=== PATIENT | female | born 1975 | race African-American/Black ===

== ENCOUNTER 2017-08-20 18:01 | Emergency (ER) | payer BC | END 2017-08-20 19:38 | disposition home or self-care (01) | LOC: ERS 18:01 | DX: J45.901 Unspecified asthma with (acute) exacerbation (principal) | CPT/HCPCS: 94640; J7620 ==

== ENCOUNTER 2017-09-30 15:51 | Outpatient (CLI) | payer BC ==
[2017-09-30 18:21] LABS: #Basophils 0.1 thou/uL (0.0-0.2); #Eosinphils 0.3 thou/uL (0.0-0.7); #Lymphocytes 2.2 thou/uL (1.20-3.40); #Monocytes 0.7 thou/uL (0.11-0.59); #Neutrophils 7.9 thou/uL (1.40-6.50); %Basophils 0.6 % (0.0-1.0); %Eosinophils 3.1 % (0.0-10.0); %Lymphocytes 19.3 % (21.0-51.0); %Monocytes 6.1 % (0.0-10.0); Hematocrit 34.5 % (36.0-47.0); Mean Platelet Volume 9.1 fL (7.4-10.4); Red Blood Cell (RBC) Count 4.25 mill/uL (4.20-5.40); White Blood Cell (WBC) Count 11.1 thou/uL (4.8-10.8)
[2017-09-30 18:42] LABS: ALT (SGPT) 16 U/L (8-55); AST (SGOT) 21 U/L (5-34); Alkaline Phosphatase 63 U/L (40-150); Anion Gap 12 mmol/L (10-20); BUN (Urea Nitrogen) 9 mg/dL (7.0-18.7); Bilirubin, Total 0.6 mg/dL (0.2-1.2); Calc. Creatinine Clearance 0 mL/min (70-130); Calcium 9.5 mg/dL (7.8-10.44); Carbon Dioxide 27 mmol/L (22-29); Chloride 103 mmol/L (98-107); Estimated GFR-MDRD Greater than 90; Globulin 3.3 g/dL (2.4-3.5); Protein, Total 7.6 g/dL (6.0-8.3)
== END 2017-09-30 15:52 | disposition home or self-care (01) ==
LOC: LABBT 15:51
PROVIDERS: ATTEND Surgery
DX: Z01.812 Encounter for preprocedural laboratory examination (principal); N64.52 Nipple discharge
CPT/HCPCS: 80053; 85025

== ENCOUNTER 2017-10-10 23:52 | Emergency (ER) | payer BC ==
[2017-10-11] MEDS ORDERED: predniSONE 20 MG TAB ONE (00:42)
--- NOTE | 2017-10-11 07:42 | RAD ---
PORTABLE CHEST: HISTORY: Wheezing. Shortness of breath. [place] 01/25/17. FINDINGS: Lungs are clear. Heart and mediastinum unremarkable. IMPRESSION: No acute finding. POS: [facility]
== END 2017-10-11 03:26 | disposition home or self-care (01) ==
LOC: ERS 23:52
DX: J45.901 Unspecified asthma with (acute) exacerbation (principal)
CPT/HCPCS: 71010; 93005; 94640; J7506; J7620

== ENCOUNTER 2017-10-12 06:07 | Day surgery (SDC) | payer BC ==
[2017-09-30 16:29] VITALS: BMI 33.4
[2017-10-12] MEDS ORDERED: CEFAZOLIN/Water 2 GM/20 ML SYRINGE ONE (06:28)
[2017-10-12] MEDS ORDERED: Fentanyl 100 MCG/2 ML VIAL ONE (07:36)
[2017-10-12] MEDS ORDERED: Albuterol Sulfate HFA (OR ONLY) ONE (08:16)
--- NOTE | 2017-10-12 09:21 | OP ---
PREOPERATIVE DIAGNOSIS: Left bloody nipple discharge. SURGEON: Saravanan Ortiz M.D. PROCEDURE PERFORMED: Duct excision. INDICATIONS: This is a 42-year-old female with a several month history of bloody left nipple dischar ge. Mammogram negative. FINDINGS: There were multiple, at least three ducts that were having bloody discharge and it appeare d to be very close to the nipple by compression. DESCRIPTION OF PROCEDURE: After informed consent was obtained, the patient was taken to the operatin g room and given general mask anesthesia, placed in the supine position. Her left chest was prepped and draped in the usual fashion. The nipple was compressed to express discharge that appeared to be from a central duct. A 4-0 Prolene suture was attempted to be threaded through this tiny duct. I co uld not get it, but in trying, there were two other ducts that were also noted, but they were more la teral expressing the same discharge and I could not cannulate them, so what I did was injected local anesthesia subcutaneously and deep, made a circumareolar incision, went subareolar and sub-nipple and I took out tissue centrally from just below the nipple and down. This was marked with a blue suture superior, a white suture anterior, and a black suture lateral and sent to pathology for further anal ysis. Hemostasis was achieved with electrocautery and [id number] of 3-0 Vicryl suture. The wo und was irrigated. Hemostasis assured. Subcutaneous reapproximated with interrupted 3-0 Vicryl. Sk in closed with a running subcuticular 4-0 Rapide. Steri-Strips applied. Sterile bandage applied. T he patient tolerated the procedure well and transferred to recovery in good condition. Sponge and ne edle count verified correct x2.
[2017-10-12] MEDS ORDERED: HYDROcodone/Acetaminophen 5/325 mg Tablet ONE (09:43)
[2017-10-12] MEDS ORDERED: Propofol 200 MG/20 ML VIAL ONE (10:27)
[2017-10-12] MEDS ORDERED: Ondansetron HCl/PF 4 MG/2 ML Vial ONE (10:27)
[2017-10-12] MEDS ORDERED: Dexamethasone 20 MG/5 ML VIAL ONE (10:27)
[2017-10-12] MEDS ORDERED: Ketorolac Tromethamine 30 MG/ML VIAL ONE (10:27)
== END 2017-10-12 10:38 | disposition home or self-care (01) ==
LOC: SDC 06:07
PROVIDERS: ATTEND Surgery
PROC: 0HJU0ZZ Inspection of Left Breast, Open Approach (ICD-10-PCS; principal; 2017-10-12)
DX: D24.2 Benign neoplasm of left breast (principal); J45.909 Unspecified asthma, uncomplicated; Z79.899 Other long term (current) drug therapy; Z98.51 Tubal ligation status; Z98.818 Other dental procedure status; Z98.890 Other specified postprocedural states
CPT/HCPCS: 88307; J1100; J1885; J2405; J2704; J3010

== ENCOUNTER 2019-05-13 10:16 | Emergency (ER) | payer BC ==
[2019-05-13 11:22] LABS: #Basophils 0.1 thou/uL (0.0-0.2); #Eosinphils 0.2 thou/uL (0.0-0.7); #Lymphocytes 1.8 thou/uL (1.20-3.40); #Monocytes 0.7 thou/uL (0.11-0.59); #Neutrophils 4.9 thou/uL (1.40-6.50); %Eosinophils 2.9 % (0.0-10.0); %Lymphocytes 23.3 % (21.0-51.0); %Monocytes 9.3 % (0.0-10.0); %Neutrophils 63.5 % (42.0-75.0); Hemoglobin 10.2 g/dL (12.0-16.0); Mean Corpuscular HGB CONC 31.9 g/dL (32.0-36.0); Mean Corpuscular Hemoglobin 25.2 pg (27.0-31.0); Mean Platelet Volume 9.7 fL (7.4-10.4); Platelet Count 229 thou/uL (130-400); RBC Distribution Width 14.9 % (11.5-14.5); Red Blood Cell (RBC) Count 4.04 mill/uL (4.20-5.40); White Blood Cell (WBC) Count 7.7 thou/uL (4.8-10.8)
[2019-05-13 11:47] LABS: ALT (SGPT) 12 U/L (8-55); AST (SGOT) 17 U/L (5-34); Albumin 3.9 g/dL (3.5-5.0); Alkaline Phosphatase 57 U/L (40-150); Anion Gap 10 mmol/L (10-20); BUN (Urea Nitrogen) 10 mg/dL (7.0-18.7); Bilirubin, Total 0.6 mg/dL (0.2-1.2); Calc. Creatinine Clearance 0 mL/min (70-130); Carbon Dioxide 24 mmol/L (22-29); Chloride 106 mmol/L (98-107); Estimated GFR-MDRD Greater than 90; Globulin 2.9 g/dL (2.4-3.5); Glucose 83 mg/dL (70-105); Lipase 11 U/L (8-78); Potassium 3.9 mmol/L (3.5-5.1); Protein, Total 6.8 g/dL (6.0-8.3); Sodium 136 mmol/L (136-145)
[2019-05-13 12:39] LABS: Bilirubin Negative (Negative); Blood, Urine Negative (Negative); Clarity Clear (Clear); Glucose, Urine (Dipstick) Normal (Negative); Leukocyte Negative Leu/uL (Negative); Nitrite Negative (Negative); Protein, Urine (Dipstick) Negative (Neg-Trace); Urobilinogen Normal mg/dL (Less than 2)
[2019-05-13 12:43] LABS: Pregnancy Test - Urine (BHCG) Negative (Negative); Pregu Control Background? CLEAR/WHITE (CLR/WHITE); Pregu Control Bar Appear? YES (CONTROL BAR); Specific Gravity 1.017 (1.002-1.036)
[2019-05-13] MEDS ORDERED: Ketorolac Tromethamine 60 MG/2 ML VIAL ONE (12:43)
--- NOTE | 2019-05-13 13:44 | RAD ---
ABDOMEN TWO VIEWS: INDICATIONS: History of left-sided abdominal pain. COMPARISON: Lumbar radiograph dated 12/07/2018 FINDINGS: There is an 8.5 mm calculus overlying the left mid renal shadow. No suspicious calcifications seen a long the expected course of the renal collecting systems. There are bilateral tubal ligation clips. The bowel gas pattern is unobstructed. The lung bases are clear. No acute osseous abnormality is e vident. IMPRESSION: Stable left nephrolithiasis. POS: [facility]
== END 2019-05-13 14:24 | disposition home or self-care (01) ==
LOC: ERS 10:16
DX: S39.011A Strain of muscle, fascia and tendon of abdomen, initial encounter (principal); N20.0 Calculus of kidney; J45.909 Unspecified asthma, uncomplicated; Z79.51 Long term (current) use of inhaled steroids; X58.XXXA Exposure to other specified factors, initial encounter
CPT/HCPCS: 36415; 74019; 80053; 81003; 81025; 83690; 85025; 96372; J1885

== ENCOUNTER 2019-07-04 21:39 | Emergency (ER) | payer BC ==
[2019-07-04] MEDS ORDERED: Dexamethasone 4 mg/ml Vial ONE (22:37)
[2019-07-04] MEDS ORDERED: Albuterol Sulfate 1.25 MG/3 ML NEB ONE (22:41)
--- NOTE | 2019-07-05 00:28 | RAD ---
RADIOGRAPH CHEST 1 VIEW: DATE: 07/04/2019 10:59 PM HISTORY: 43-year-old female with wheezing FINDINGS: The visualized lung vann are clear. The cardiomediastinal silhouette and hilar shadows are normal. The lateral costophrenic angles are sharp. The osseous structures appear normal. There is no pneumothorax. IMPRESSION: Negative.
== END 2019-07-05 01:12 | disposition left against medical advice (07) ==
LOC: ERS 21:39
DX: Z53.21 Procedure and treatment not carried out due to patient leaving prior to being seen by health care provider (principal)
CPT/HCPCS: 71045; 94640; J1100

== ENCOUNTER 2019-07-09 19:50 | Emergency (ER) | payer BC ==
[2019-07-09] MEDS ORDERED: Dexamethasone 4 MG TAB ONE (20:12)
[2019-07-09] MEDS ORDERED: Dexamethasone 10 MG/ML VIAL ONE (20:15)
== END 2019-07-09 21:30 | disposition home or self-care (01) ==
LOC: ERS 19:50
DX: J45.901 Unspecified asthma with (acute) exacerbation (principal)
CPT/HCPCS: 94640; J1100; J7620; J8540

== ENCOUNTER 2019-07-12 08:46 | Outpatient (CLI) | payer BC ==
--- NOTE | 2019-07-12 10:01 | CT ---
CT ABDOMEN AND PELVIS WITHOUT IV CONTRAST: INDICATIONS: Left lower quadrant pain. COMPARISON: None. TECHNIQUE: Axial tomograms obtained with multiplanar reconstruction. FINDINGS: The lung bases are clear. The liver, spleen and pancreas are unremarkable. The stomach and duodenum are unremarkable. The adrenal glands are normal. There is an 8 mm calculus in the lower collecting structures of the left kidney. No evidence of uret eral calculus or obstruction. No other urinary tract calculus identified. The urinary bladder is mi ldly distended and unremarkable in appearance. Small bowel loops are of normal caliber. The appendix appears normal. The colon is unremarkable. T he colon is mostly nondistended and poorly evaluated on CT. No evidence of diverticulitis. The aorta is of normal caliber. No evidence of adenopathy. Images through the pelvis show an unremarkable uterus and adnexa. Evidence of a right ovarian cyst, measuring up to 2 cm. No free fluid. IMPRESSION: 1. An 8 mm nonobstructing calculus, lower pole collecting structures, left kidney. 2. small right ovarian cyst. 3. No evidence of acute process. POS: [facility]
== END 2019-07-12 08:47 | disposition home or self-care (01) ==
LOC: SCSCT 08:46
PROVIDERS: ATTEND Urology
DX: R10.32 Left lower quadrant pain (principal); N20.0 Calculus of kidney; R35.0 Frequency of micturition; N83.201 Unspecified ovarian cyst, right side; Z84.1 Family history of disorders of kidney and ureter
CPT/HCPCS: 74176

== ENCOUNTER 2019-08-01 15:44 | Outpatient (CLI) | payer BC ==
[2019-08-01 17:01] LABS: Hemoglobin 9.4 g/dL (12.0-16.0); Mean Corpuscular Hemoglobin 25.1 pg (27.0-31.0); Mean Corpuscular Volume 78.5 fL (78.0-98.0); Mean Platelet Volume 9.4 fL (7.4-10.4); Platelet Count 281 thou/uL (130-400); RBC Distribution Width 15.4 % (11.5-14.5); Red Blood Cell (RBC) Count 3.76 mill/uL (4.20-5.40); White Blood Cell (WBC) Count 8.2 thou/uL (4.8-10.8)
[2019-08-01 17:04] LABS: INR-International Normal Ratio 0.9; Prothrombin Time 12.4 SEC (12.0-14.7)
[2019-08-01 17:05] LABS: PTT 35.5 SEC (22.9-36.1)
[2019-08-01 17:06] LABS: BHCG - Serum Negative (NEGATIVE); Pregs Control Background? CLEAR/WHITE (CLR/WHITE); Pregs Control Bar Appear? YES (CONTROL BAR)
[2019-08-01 17:11] LABS: Bacteria/HPF None Seen HPF (None Seen); Bilirubin Negative (Negative); Blood, Urine Trace (Negative); Clarity Clear (Clear); Glucose, Urine (Dipstick) Normal (Negative); Leukocyte Negative Leu/uL (Negative); Mucous/LPF Rare LPF (<2+); Nitrite Negative (Negative); Protein, Urine (Dipstick) Negative (Neg-Trace); Squamous Epithelial 0-3 HPF (0-3); Urobilinogen Normal mg/dL (Less than 2); WBC/HPF 0-3 HPF (0-3)
[2019-08-01 17:19] LABS: Anion Gap 10 mmol/L (10-20); BUN (Urea Nitrogen) 9 mg/dL (7.0-18.7); Calc. Creatinine Clearance 0 mL/min (70-130); Calcium 8.9 mg/dL (7.8-10.44); Carbon Dioxide 24 mmol/L (22-29); Chloride 107 mmol/L (98-107); Estimated GFR-MDRD Greater than 90; Glucose 74 mg/dL (70-105); Potassium 3.8 mmol/L (3.5-5.1); Sodium 137 mmol/L (136-145)
== END 2019-08-01 15:45 | disposition home or self-care (01) ==
LOC: LABBT 15:44
PROVIDERS: ATTEND Urology
DX: Z01.818 Encounter for other preprocedural examination (principal); N20.0 Calculus of kidney
CPT/HCPCS: 80048; 81001; 84703; 85027; 85610; 85730; 87086; 93005; 93010

== ENCOUNTER 2019-08-10 07:06 | Day surgery (SDC) | payer BC ==
[2019-08-01 16:58] VITALS: BMI 34.0
[2019-08-10] MEDS ORDERED: Levofloxacin 500 mg/D5W 100 ml Premix Bag ONE (08:22)
--- NOTE | 2019-08-10 09:00 | RAD ---
ABDOMEN ONE VIEW: HISTORY: Renal calculi. COMPARISON: CT abdomen and pelvis from 07/12/2019. FINDINGS: The dominant 8 mm calculus, inferior left renal collecting system, is similar in location on this rad iograph. Fallopian tube closure devices bilaterally. No abnormal calcifications are detected over the right renal collecting system. No abnormal calcifica tions are detected over the expected location of the ureters. There are five [id number] lumbar type vertebrae. IMPRESSION: No migration of the left inferior renal collecting system calculus. POS: [facility]
[2019-08-10] MEDS ORDERED: Albuterol Sulfate 1.25 MG/3 ML NEB ONE (09:16)
[2019-08-10] MEDS ORDERED: Midazolam HCl 2 mg/2 ml Vial ONE (09:16)
[2019-08-10] MEDS ORDERED: Fentanyl 100 MCG/2 ML VIAL ONE ×2 (09:16→11:27)
[2019-08-10] MEDS ORDERED: Albuterol Sulfate HFA (OR ONLY) ONE (09:18)
[2019-08-10] MEDS ORDERED: Lidocaine 2% Jelly 5 ML TUBE ONE (09:29)
[2019-08-10] MEDS ORDERED: Iothalamate Meglumine 60% 50 ML VIAL FS ONE (09:39)
[2019-08-10] MEDS ORDERED: SUGAMMADEX SODIUM 200 MG/2 ML VIAL ONE (10:30)
[2019-08-10] MEDS ORDERED: Phenazopyridine HCl 97.5 MG TABLET ONE ×2 (10:47→10:50)
[2019-08-10] MEDS ORDERED: Oxybutynin 5 MG TAB ONE (10:50)
[2019-08-10] MEDS ORDERED: HYDROcodone/Acetaminophen 5/325 mg Tablet ONE (10:56)
--- NOTE | 2019-08-10 11:20 | RAD ---
RETROGRADE PYELOGRAM: Date: 08/10/19 A total of five fluoroscopic images were presented from the OR during retrograde procedure and stent placement. Initial images show placement of left ureteral catheter and opacification of left collecting structur es. Final image shows placement of a left ureteral stent. POS: [facility]
--- NOTE | 2019-08-10 11:26 | OP ---
DATE OF PROCEDURE: 08/10/2019 PREOPERATIVE DIAGNOSES: 1. A 43-year-old female with history of left lower pole 8 mm stone, Hounsfield unit over>1000 2. History of obesity. POSTOPERATIVE DIAGNOSES: 1. A 43-year-old female with history of left lower pole 8 mm stone, Hounsfield unit >1000 2. History of obesity. PROCEDURES PERFORMED: Cystoscopy, left retrograde pyelogram, 6 x 24 double-J ureteral stent placement, ureteral dilatation. ANESTHESIA: General. COMPLICATIONS: None apparent. DISPOSITION: To recovery room in stable condition. HISTORY OF PRESENT ILLNESS: Ms. Wiley was taken to the operating room, placed in a dorsal lithotomy position with the genital area prepped and draped in the usual surgical sterile fashion. Broad-spectrum antibiotics were provided. Bilateral REILLY hose and SCDs placed. A 22-Trinidadian cystoscope was utilized for cystoscopy, which demonstrated normal bladder mucosa. The UOs were identified in normal anatomical location; however, they were somewhat small in caliber. I had to utilize a 0.35 Sensor wire to intubate the left UO, and subsequently, an open-ended catheter was placed into the left intramural ureter, and a retrograde pyelogram was performed. Although, there was no gross evidence of ureteral stricture or filling defect, the ureter itself appeared to be very delicate and small in nature. There was no evidence of hydronephrosis. A 0.35 Sensor wire was placed into the left upper pole, and at this time, we utilized a [employer] 4-cm 12-Trinidadian balloon dilator to dilate the intramural ureter. The pressure was held with a maximum pressure, and then, subsequently dilated a second segment just above the intramural ureter. At this time, a 10-Trinidadian dual-lumen access sheath was passed into the level of the left UO intramural ureter, which passed to the level of dilatation; however, there was still some hang up in which I was unable to pass the 10-Trinidadian dual-lumen access sheath to the level of the mid sacral ureter. Therefore, we removed the 10- Trinidadian dual-lumen access sheath, and we dilated this region with a [employer] dilator 4 cm, 12-Trinidadian. With subsequent dilatation, I did try to pass the open-ended catheter above this region, but it still would not pass. Therefore, given that she did have a small caliber ureter, I did not forcibly engage further. Decision was made at this time that it would be judicious to place an indwelling ureteral stent for passive dilatation and bring her back another day for ureteroscopy. A 6 x 24 double-J ureteral stent was passed without difficulty. Proximal coil was in the left upper pole with adequate redundancy in the bladder. The stent did pass without significant issues, and she tolerated the procedure well. She is discharged with ciprofloxacin for course of 5 days; Azo p.r.n.; Colace 100 mg #30 p.o. b.i.d. p.r.n.; VESIcare 5 mg #30, one p.o. daily; tramadol 50 mg #30 one to two p.o. q.6-8 hours p.r.n. for discomfort. She will return to clinic to see me next week on . I plan to leave the indwelling ureteral stent minimum 2 weeks given small caliber ureter, possible tentative staging ureteroscopy laser lithotripsy, August 24, two weeks from today. Job ID: [id number] [facility]
[2019-08-10] MEDS ORDERED: Sodium Chloride 0.9% 10 ML ONE (14:24)
[2019-08-10] MEDS ORDERED: Promethazine HCl 25 MG/ML VIAL ONE (14:24)
== END 2019-08-10 16:45 | disposition home or self-care (01) ==
LOC: SDC 07:06
PROVIDERS: ATTEND Urology
PROC: 0T778DZ Dilation of Left Ureter with Intraluminal Device, Via Natural or Artificial Opening Endoscopic (ICD-10-PCS; principal; 2019-08-10)
DX: N20.0 Calculus of kidney (principal); J45.909 Unspecified asthma, uncomplicated; R35.0 Frequency of micturition; E66.9 Obesity, unspecified; Z68.34 Body mass index [BMI] 34.0-34.9, adult; Z91.011 Allergy to milk products
CPT/HCPCS: 74018; 74420; C1758; C1769; J1956; J2250; J2550; J3010

== ENCOUNTER 2019-08-18 10:07 | Outpatient (CLI) | payer BC ==
[2019-08-18 10:46] LABS: Hemoglobin 10.4 g/dL (12.0-16.0); Mean Corpuscular HGB CONC 31.3 g/dL (32.0-36.0); Mean Corpuscular Hemoglobin 24.2 pg (27.0-31.0); Mean Corpuscular Volume 77.4 fL (78.0-98.0); Mean Platelet Volume 9.4 fL (7.4-10.4); Platelet Count 316 thou/uL (130-400); RBC Distribution Width 15.9 % (11.5-14.5); Red Blood Cell (RBC) Count 4.28 mill/uL (4.20-5.40); White Blood Cell (WBC) Count 12.6 thou/uL (4.8-10.8)
[2019-08-18 10:56] LABS: INR-International Normal Ratio 0.9; PTT 36.2 SEC (22.9-36.1); Prothrombin Time 12.3 SEC (12.0-14.7)
[2019-08-18 11:09] LABS: Anion Gap 12 mmol/L (10-20); BUN (Urea Nitrogen) 8 mg/dL (7.0-18.7); Calc. Creatinine Clearance 0 mL/min (70-130); Calcium 9.5 mg/dL (7.8-10.44); Carbon Dioxide 24 mmol/L (22-29); Chloride 105 mmol/L (98-107); Estimated GFR-MDRD Greater than 90; Glucose 101 mg/dL (70-105); Potassium 4.1 mmol/L (3.5-5.1); Sodium 137 mmol/L (136-145)
--- NOTE | 2019-08-18 12:21 | RAD ---
Exam: 1 view abdomen COMPARISON: 08/10/2019 HISTORY: Preoperative exam. Renal calculus FINDINGS: There is a left-sided ureteral stent, which is presumed to be appropriately positioned. Red emonstration of a approximately 1 cm calcification projecting over the left renal silhouette. Nonspecific bowel gas pattern. Stable surgical clips in the left right hemipelvis IMPRESSION: 1. Left ureteral stent. Line 2. Solitary calcification projects of the left renal silhouette.
== END 2019-08-18 10:08 | disposition home or self-care (01) ==
LOC: LABBT 10:07
PROVIDERS: ATTEND Urology
DX: Z01.818 Encounter for other preprocedural examination (principal); N20.0 Calculus of kidney; R10.32 Left lower quadrant pain; R35.0 Frequency of micturition; Z84.1 Family history of disorders of kidney and ureter
CPT/HCPCS: 74018; 80048; 81001; 85027; 85610; 85730; 87086

== ENCOUNTER 2019-08-24 09:17 | Day surgery (SDC) | payer BC ==
[2019-08-18 10:22] VITALS: BMI 35.1
[2019-08-24] MEDS ORDERED: Levofloxacin 500 mg/D5W 100 ml Premix Bag ONE (13:12)
--- NOTE | 2019-08-24 13:43 | RAD ---
CHEST 1 VIEW: Date: 08/24/19 HISTORY: Preop. COMPARISON: 07/04/19. FINDINGS: Cardiac silhouette is magnified by projection. Pulmonary vasculature is unremarkable. Mediastinum is midline. No lobar consolidation or evidence of pneumothorax. Left ureteral stent partially visualized . IMPRESSION: No active cardiopulmonary abnormalities are demonstrated. POS: [facility]
[2019-08-24] MEDS ORDERED: Fentanyl 100 MCG/2 ML VIAL ONE ×2 (14:11→15:45)
--- NOTE | 2019-08-24 15:11 | RAD ---
SUPINE ABDOMEN: 08/24/19 HISTORY: Left renal calculus. COMPARISON: 08/18/19. A left ureteral stent is again noted and is unchanged in position. Calcification overlying the lower pole left kidney is unchanged in size and appearance. Bowel gas pattern unremarkable. IMPRESSION: Stable findings. POS: [facility]
[2019-08-24] MEDS ORDERED: Meperidine HCl/PF 25 MG/ML VIAL ONE (15:37)
[2019-08-24] MEDS ORDERED: Sodium Chloride For Inhalation 0.9% 3 ML NEB ONE (15:44)
[2019-08-24] MEDS ORDERED: Racepinephrine 2.25% 0.5 ML NEB ONE (15:44)
[2019-08-24] MEDS ORDERED: Phenazopyridine HCl 97.5 MG TABLET ONE (16:12)
--- NOTE | 2019-08-24 20:14 | OP ---
DATE OF PROCEDURE: 08/24/2019 PREOPERATIVE DIAGNOSIS: A 43-year-old female with left 8-mm lower pole calculi. POSTOPERATIVE DIAGNOSIS: A 43-year-old female with left 8-mm lower pole calculi. PROCEDURE PERFORMED: Left extracorporeal shockwave lithotripsy. ANESTHESIA: LMA. COMPLICATIONS: None apparent. DISPOSITION: To recovery room in stable condition. DESCRIPTION OF PROCEDURE: Ms. Wiley is a pleasant 43-year-old female who presented for treatment of her left lower pole calculi. We discussed options of ESWL and ureteroscopy, and she desired more definitive surgery, i.e., ureteroscopy, laser lithotripsy. However, despite dilatation of her ureter, I was unable to access her left collecting system with initial endeavor. Retrograde pyelogram demonstrated that her ureters without stricture; however, they were delicate in nature. As such, I informed the patient if she will require prolonged stent; however, I cannot guarantee that we will be able to access the upper collecting system safely. Therefore, we did discuss options, alternative ESWL. Stone free rate in comparison to ureteroscopy, laser lithotripsy reviewed. As it is less invasive, she desired trial of ESWL as I informed her that her ureters were somewhat delicate to proceed with ureteroscopy, laser lithotripsy; however, willing to proceed if she is willing to accept the fact that I may not be able to access her collecting system safely. Therefore, she desired ESWL. Risks and complications of the procedure were reviewed with her in detail including bleeding, pain, infection, pain, hematoma. Questions answered to her satisfaction. She desired to proceed. DESCRIPTION OF PROCEDURE: The patient was taken to the operating room, placed in a supine position. She was placed on the ESWL table with Dornier Delta II model. At a rate slowly increased to 70, energy of 4, we delivered 2500 shock weights. The stone was seen throughout the procedure, and it did appear at first; however, moiety still remains. She will follow up next Thursday for possible cysto stent pull, pending review of her KUB to be obtained the day prior. She was discharged with prior medication of VESIcare refill, AZO [id number], prescription for Omnicef to be started the day before cysto stent pull x3 days, she requested [place] for discomfort of stent, which #20 refill provided. I am encouraging the patient to take tramadol instead, refill prescription provided. Job ID: [id number] [facility]TD[facility]
== END 2019-08-24 19:15 | disposition home or self-care (01) ==
LOC: SDC 09:17
PROVIDERS: ATTEND Urology
PROC: 0TF4XZZ Fragmentation in Left Kidney Pelvis, External Approach (ICD-10-PCS; principal; 2019-08-24)
DX: N20.0 Calculus of kidney (principal); J45.909 Unspecified asthma, uncomplicated; Z79.899 Other long term (current) drug therapy; Z91.011 Allergy to milk products
CPT/HCPCS: 71045; 74018; J1956; J2175; J3010; J7620

== ENCOUNTER 2019-09-01 08:07 | Outpatient (CLI) | payer BC | END 2019-09-01 08:08 | disposition home or self-care (01) | LOC: RAD 08:07 | PROVIDERS: ATTEND Urology | DX: N20.0 Calculus of kidney (principal) | CPT/HCPCS: 74018 ==

== ENCOUNTER 2019-09-02 08:42 | Outpatient (CLI) | payer BC ==
[2019-09-02 09:49] LABS: Hemoglobin 9.6 g/dL (12.0-16.0); Mean Corpuscular HGB CONC 31.5 g/dL (32.0-36.0); Mean Corpuscular Volume 79.2 fL (78.0-98.0); Mean Platelet Volume 9.6 fL (7.4-10.4); Platelet Count 284 thou/uL (130-400); RBC Distribution Width 16.4 % (11.5-14.5); Red Blood Cell (RBC) Count 3.85 mill/uL (4.20-5.40)
[2019-09-02 09:54] LABS: INR-International Normal Ratio 0.9; PTT 38.4 SEC (22.9-36.1); Prothrombin Time 12.4 SEC (12.0-14.7)
[2019-09-02 10:02] LABS: Anion Gap 13 mmol/L (10-20); BUN (Urea Nitrogen) 8 mg/dL (7.0-18.7); Calc. Creatinine Clearance 0 mL/min (70-130); Carbon Dioxide 22 mmol/L (22-29); Chloride 108 mmol/L (98-107); Estimated GFR-MDRD Greater than 90; Glucose 83 mg/dL (70-105); Sodium 138 mmol/L (136-145)
--- NOTE | 2019-09-02 11:07 | EKG ---
Test Reason : Blood Pressure : / mmHG Vent. Rate : 075 BPM Atrial Rate : 075 BPM P-R Int : 160 ms QRS Dur : 090 ms QT Int : 386 ms P-R-T Axes : 064 029 036 degrees QTc Int : 431 ms Normal sinus rhythm Normal ECG When compared with ECG of 01-AUG-2019 16:38, No significant change was found Confirmed by DR. Vilma WILSON ([id number]) on 09/02/2019 11:07:44 AM Referred By: SHY Confirmed By:DR. Vilma WILSON
== END 2019-09-02 08:43 | disposition home or self-care (01) ==
LOC: LABBT 08:42
PROVIDERS: ATTEND Urology
DX: Z01.818 Encounter for other preprocedural examination (principal); N20.0 Calculus of kidney; R10.32 Left lower quadrant pain; R35.0 Frequency of micturition; Z84.1 Family history of disorders of kidney and ureter
CPT/HCPCS: 80048; 81001; 85027; 85610; 85730; 87086; 93005; 93010

== ENCOUNTER 2019-09-07 06:28 | Day surgery (SDC) | payer BC ==
[2019-09-02 09:26] VITALS: BMI 34.0
--- NOTE | 2019-09-07 07:55 | RAD ---
KUB INDICATION: Preoperative evaluation for renal stones COMPARISON: KUB dated September 01, 2019 FINDINGS: Bowel gas: Nonspecific but without overt appearance of obstruction. Lung bases: Clear. Additional findings: There is a 4 mm stone within the region of the proximal left ureter, adjacent to the left ureteral stent. An additional 3.2 and 0.7 mm stone is seen in the region of the left UPJ. 5 mm and 2 mm nonobstructive stone are seen overlying the mid to inferior left kidney. The double-J l eft ureteral stent is unchanged in position. Again seen are bilateral tubal ligation clips. Osseous structures: No acute osseous abnormality is demonstrated. IMPRESSION: 1. Left renal collecting system stones as above. Stable left double-J ureteral stent.
[2019-09-07] MEDS ORDERED: Levofloxacin 500 mg/D5W 100 ml Premix Bag ONE (08:00)
[2019-09-07] MEDS ORDERED: Iothalamate Meglumine 60% 50 ML VIAL FS ONE (08:11)
[2019-09-07] MEDS ORDERED: Midazolam HCl 2 mg/2 ml Vial ONE (08:23)
[2019-09-07] MEDS ORDERED: Fentanyl 100 MCG/2 ML VIAL ONE (08:23)
[2019-09-07] MEDS ORDERED: Phenazopyridine HCl 97.5 MG TABLET ONE (09:42)
[2019-09-07] MEDS ORDERED: Oxybutynin 5 MG TAB ONE (09:42)
[2019-09-07] MEDS ORDERED: Glycopyrrolate 0.2 MG/ML 5 ML SYRINGE ONE (10:16)
[2019-09-07] MEDS ORDERED: Dexamethasone 20 MG/5 ML VIAL ONE (10:16)
[2019-09-07] MEDS ORDERED: Rocuronium Bromide 10 MG/ML (10ML VIAL) ONE (10:16)
[2019-09-07] MEDS ORDERED: Ondansetron PF 4 MG/2 ML Vial ONE (10:16)
[2019-09-07] MEDS ORDERED: PROPOFOL 200 MG/20 ML VIAL ONE (10:16)
[2019-09-07] MEDS ORDERED: Lidocaine 1% PF 5 ML VIAL ONE (10:16)
--- NOTE | 2019-09-07 11:35 | RAD ---
RETROGRADE IVP: Date: 09/07/19 COMPARISON: 08/10/19. HISTORY: Kidney stone. FINDINGS/IMPRESSION: Limited intraoperative fluoroscopic views during a retrograde IVP were submitted for interpretation. Contrast seen in the left renal collecting system. There is mild dilatation of the calices. No obviou s filling defects are seen. POS: [facility]
--- NOTE | 2019-09-07 12:15 | OP ---
DATE OF PROCEDURE: 09/07/2019 PREOPERATIVE DIAGNOSES: 1. A 43-year-old female with 8 to 10 mm left lower pole renal calculi. 2. Status post extracorporeal shockwave lithotripsy with fragmented debris in the kidney and along the course of the ureteral stent. POSTOPERATIVE DIAGNOSES: 1. A 43-year-old female with 8 to 10 mm left lower pole renal calculi. 2. Status post extracorporeal shockwave lithotripsy with fragmented debris in the kidney and along the course of the ureteral stent. PROCEDURES PERFORMED: Cystoscopy, left retrograde pyelogram, 6 x 24 double-J ureteral stent exchange on [place], flexible ureteroscopy, pyeloscopy, basket extraction of multiple fragmented debris in the kidney, and proximal ureter. ANESTHESIA: General. COMPLICATIONS: None apparent. DISPOSITION: To recovery room in stable condition. SPECIMEN: Stone fragments for chemical analysis. INTRAOPERATIVE FINDINGS: Two fragmented stone debris in the proximal course of the ureter, multiple fragmented debris in the left lower and mid to upper pole. INDICATIONS FOR PROCEDURE AND HISTORY: Ms. Wiley is a pleasant 43-year-old female, who presented for evaluation of left renal lithiasis. She had a large left lower pole stone measuring about 8 to 10 mm with Hounsfield greater than 1000. We attempted to perform ureteroscopy and laser lithotripsy, however, her ureters were quite delicate and we were unable to access the left kidney to appropriate treatment of her renal calculi. She underwent ureteral stent placement, we discussed options of ESWL versus ureteroscopy and laser lithotripsy. She desired a trial of ESWL , as I had informed her that her ureters were somewhat delicate in nature. She underwent a followup KUB demonstrated fragmented stone debris, however, stones are also in the proximal ureter adjacent to the stent. She desired to proceed with diagnostic ureteroscopy, laser lithotripsy, basket extraction of stone debris that is residual. Risks and complications of the procedure were reviewed with her in detail including, but not limited to, bleeding, pain, infection, injury to adjacent organs, ureteral stricture disease, possible secondary procedure. All questions answered to her satisfaction and she desired to proceed. DESCRIPTION OF PROCEDURE: After an informed consent was signed, the patient was taken to the operating room, placed in a dorsal lithotomy position with the genital area prepped and draped in the usual surgical sterile fashion. A 21-Vincentian cystoscope was utilized for cystoscopy. The previous ureteral stent was removed to the level of the meatus and a 0.35 Sensor wire was placed into the left upper pole. A 10-Vincentian dual-lumen access sheath was able to be passed and this did pass without significant issues in the proximal ureter. A 0.35 Super Stiff working wire was then placed. With the dual-lumen access sheath removed, we gently passed 11/13- Vincentian x 28 cm navigator. We gently passed this to the level of the proximal ureter. It was passed atraumatically. The flexible ureteroscope was then passed over the working Super Stiff wire. Surveillance of the collecting system demonstrated multiple stone debris in the upper pole and the lower pole. We basket extracted these with Zero Tip Nitinol basket. Approximately 7 or 8 stone fragmented debris measuring about 3 mm were basket extracted atraumatically. We surveyed the course of the ureter, demonstrating 2 stone nidus in the proximal ureter, which were basket extracted. Evaluation of the ureteral mucosa demonstrated no evidence of ureteral perforation or further stone debris of concern. A 6 x 24 double-J ureteral stent was then passed after the navigator was removed and Rosie was left in situ as there is endoscopic clearance of her ureteral and renal stone fragmented debris. The bladder was completely emptied and she tolerated the procedure well. She is discharged with tramadol 50 mg #30 one to two p.o. q.4-6 hours p.r.n., VESIcare 5 mg #5, Colace p.r.n., Omnicef 300 mg one p.o. b.i.d. until enough provided for stent removal next . Azo p.r.n. Instructions provided regarding care, regarding her stent on Rosie as it was taped to her pubic symphysis. Job ID: [id number] [facility]
[2019-09-13 08:11] LABS: CA Oxalate Monohydrate 95 % (.); Color Brown (.); Stone Weight 101.3 mg (.)
== END 2019-09-07 13:30 | disposition home or self-care (01) ==
LOC: SDC 06:28
PROVIDERS: ATTEND Urology
PROC: 0TC78ZZ Extirpation of Matter from Left Ureter, Via Natural or Artificial Opening Endoscopic (ICD-10-PCS; principal; 2019-09-07)
PROC: 0T778DZ Dilation of Left Ureter with Intraluminal Device, Via Natural or Artificial Opening Endoscopic (ICD-10-PCS; principal; 2019-09-07)
DX: N20.0 Calculus of kidney (principal); J45.909 Unspecified asthma, uncomplicated; Z79.899 Other long term (current) drug therapy; Z91.011 Allergy to milk products
CPT/HCPCS: 74018; 74420; 82365; 88300; C1758; C1769; J1100; J1956; J2001; J2250; J2405; J2704; J3010

== ENCOUNTER 2019-11-15 10:34 | Emergency (ER) | payer BC | END 2019-11-15 12:40 | disposition home or self-care (01) | LOC: ERS 10:34 | DX: R06.02 Shortness of breath (principal); J45.909 Unspecified asthma, uncomplicated | CPT/HCPCS: 94640 ==

== ENCOUNTER 2020-01-03 16:15 | Emergency (ER) | payer BC ==
[2020-01-03] MEDS ORDERED: predniSONE 20 MG TAB ONE (16:53)
== END 2020-01-03 17:40 | disposition home or self-care (01) ==
LOC: ERS 16:15
DX: J45.901 Unspecified asthma with (acute) exacerbation (principal); Z79.51 Long term (current) use of inhaled steroids
CPT/HCPCS: 94640; J7512; J7620

== ENCOUNTER 2020-01-22 08:11 | Emergency (ER) | payer BC ==
[2020-01-22] MEDS ORDERED: methylPREDNISolone Sod Succ/PF 125 MG/2 ML VIAL ONE (08:27)
--- NOTE | 2020-01-22 09:40 | RAD ---
PORTABLE CHEST: HISTORY: Chest pain. COMPARISON: 07/04/2019 FINDINGS: The lungs appear clear. No infiltrate or effusion. Heart and mediastinum unremarkable. No interval ch rudolph. IMPRESSION: No acute findings. POS: [facility]
== END 2020-01-22 10:41 | disposition home or self-care (01) ==
LOC: ERS 08:11
DX: J45.901 Unspecified asthma with (acute) exacerbation (principal); Z79.899 Other long term (current) drug therapy
CPT/HCPCS: 71045; 93005; 94760; 96361; 96374; J2930

== ENCOUNTER 2024-01-05 14:29 | Emergency (ER) | payer BC ==
[2024-01-05 16:07] LABS: #Basophils 0.1 thou/uL (0.0-0.2); #Eosinphils 0.3 thou/uL (0.0-0.7); #Monocytes 0.8 thou/uL (0.11-0.59); #Neutrophils 6.9 thou/uL (1.40-6.50); %Basophils 0.8 % (0.0-1.0); %Eosinophils 3.2 % (0.0-10.0); %Lymphocytes 16.9 % (21.0-51.0); %Monocytes 8.3 % (0.0-10.0); %Neutrophils 70.5 % (42.0-75.0); Hematocrit 25.7 % (36.0-47.0); Hemoglobin 7.2 g/dL (12.0-16.0); Mean Corpuscular Hemoglobin 17.8 pg (27.0-31.0); Mean Corpuscular Volume 63.5 fl (78.0-98.0); Platelet Count 311 10x3/uL (130-400); RBC Distribution Width 22.1 % (11.5-14.5); Red Blood Cell (RBC) Count 4.05 mill/uL (4.20-5.40); White Blood Cell (WBC) Count 9.8 10x3/uL (4.8-10.8)
[2024-01-05 16:10] LABS: Bilirubin Negative (Negative); Blood, Urine Large (Negative); Glucose, Urine (Dipstick) Negative (Negative); Ketone, Urine Negative (Negative); Leukocyte Negative (Negative); Nitrite Negative (Negative); Protein, Urine (Dipstick) Negative (Neg-Trace); Urobilinogen 0.2 mg/dL (Less than 2)
[2024-01-05 16:13] LABS: Bacteria/HPF None Seen HPF (None Seen); CAUTI Indications for Culture Pelvic or flank pain; RBC/HPF Greater than 50 HPF (0-3); Squamous Epithelial 0-3 HPF (0-3); WBC/HPF 0-3 HPF (0-3)
[2024-01-05 16:17] LABS: BHCG - Serum Negative (NEGATIVE); Pregs Control Background? CLEAR/WHITE (CLR/WHITE); Pregs Control Bar Appear? YES (CONTROL BAR)
[2024-01-05 16:18] LABS: Clarity Clear (Clear)
[2024-01-05 16:22] LABS: Urine Culture Reflex No No
[2024-01-05 16:27] LABS: ALT (SGPT) 24 U/L (8-55); AST (SGOT) 28 U/L (5-34); Albumin 4.2 g/dL (3.5-5.0); Alkaline Phosphatase 60 U/L (40-110); Anion Gap 13 mmol/L (10-20); BUN (Urea Nitrogen) 9 mg/dL (7.0-18.7); Bilirubin, Total 0.6 mg/dL (0.2-1.2); Calc. Creatinine Clearance 0 mL/min (70-130); Carbon Dioxide 24 mmol/L (22-29); Chloride 106 mmol/L (98-107); Estimated GFR 99; Globulin 3.2 g/dL (2.4-3.5); Glucose 80 mg/dL (70-105); Potassium 3.7 mmol/L (3.5-5.1); Protein, Total 7.4 g/dL (6.0-8.3); Sodium 139 mmol/L (136-145)
[2024-01-05 16:42] LABS: CellaVision Operator ID lab.dlt; Hypochromia MODERATE=16-30 cells HPF (0-5); Microcytosis MODERATE=15-30 cells HPF (0-5); Platelet Adequacy Comment Platelets Normal; Polychromasia SLIGHT = 2-3 cells HPF (0-2); Schistocytes SLIGHT = 2-5 cells HPF (0-1); Tear Drops SLIGHT = 2-5 cells HPF (0-1)
== END 2024-01-05 17:50 | disposition home or self-care (01) ==
LOC: ERS 14:29
DX: D50.9 Iron deficiency anemia, unspecified (principal)
CPT/HCPCS: 36415; 80053; 81001; 84703; 85025; 86850; 86900; 86901; 93005

== ENCOUNTER 2024-08-04 09:14 | Emergency (ER) | payer BC ==
[2024-08-04] MEDS ORDERED: Ketorolac Tromethamine 30 MG (1 mL) VIAL ONE (10:30)
== END 2024-08-04 10:25 | disposition home or self-care (01) ==
LOC: ERS 09:14
DX: M25.571 Pain in right ankle and joints of right foot (principal)
CPT/HCPCS: 96372; 99283; J1885

== ENCOUNTER 2024-09-05 09:33 | Outpatient (CLI) | payer BC | END 2024-09-05 09:34 | disposition home or self-care (01) | LOC: ULT 09:33 | PROVIDERS: ATTEND Family Medicine | DX: N92.0 Excessive and frequent menstruation with regular cycle (principal); D25.9 Leiomyoma of uterus, unspecified | CPT/HCPCS: 76856 ==

== ENCOUNTER 2024-09-05 10:42 | Emergency (ER) | payer BC ==
[2024-09-05 14:01] LABS: ALT (SGPT) 34 U/L (8-55); AST (SGOT) 28 U/L (5-34); Albumin 3.8 g/dL (3.5-5.0); Alkaline Phosphatase 60 U/L (40-110); Anion Gap 12 mmol/L (10-20); BUN (Urea Nitrogen) 7 mg/dL (7.0-18.7); Bilirubin, Total 0.4 mg/dL (0.2-1.2); Calc. Creatinine Clearance 0 mL/min (70-130); Carbon Dioxide 23 mmol/L (22-29); Chloride 106 mmol/L (98-107); Estimated GFR 109; Globulin 3.5 g/dL (2.4-3.5); Glucose 135 mg/dL (70-105); Potassium 3.7 mmol/L (3.5-5.1); Protein, Total 7.3 g/dL (6.0-8.3); Sodium 137 mmol/L (136-145)
[2024-09-05 14:23] LABS: #Basophils 0.09 10x3/uL (0.0-0.2); %Eosinophils 3.8 % (0.0-10.0); %Lymphocytes 20.7 % (21.0-51.0); %Monocytes 6.2 % (0.0-10.0); %Neutrophils 68.1 % (42.0-75.0); Hematocrit 25.3 % (36.0-47.0); Hemoglobin 7.2 g/dL (12.0-16.0); Mean Corpuscular HGB CONC 28.5 g/dL (32.0-36.0); Mean Corpuscular Hemoglobin 19.8 pg (27.0-31.0); Mean Corpuscular Volume 69.5 fL (78.0-98.0); Platelet Count 294 10x3/uL (130-400); RBC Distribution Width 18.2 % (11.5-14.5); Red Blood Cell (RBC) Count 3.64 mill/uL (4.20-5.40)
[2024-09-05 15:06] LABS: Anisocytosis MODERATE=16-30 cells HPF (0-5); Hypochromia MODERATE=16-30 cells HPF (0-5); Microcytosis SLIGHT = 6-15 cells HPF (0-5); Ovalocytes SLIGHT = 2-5 cells HPF (0-1); Platelet Adequacy Comment Platelets Normal; Polychromasia SLIGHT = 2-3 cells HPF (0-2); Reflex for Review?? YES; Schistocytes SLIGHT = 2-5 cells HPF (0-1); Target Cells SLIGHT = 2-5 cells HPF (0-1); Tear Drops SLIGHT = 2-5 cells HPF (0-1)
== END 2024-09-05 16:56 | disposition home or self-care (01) ==
LOC: ERS 10:42
DX: D64.9 Anemia, unspecified (principal); N92.0 Excessive and frequent menstruation with regular cycle; D25.9 Leiomyoma of uterus, unspecified
CPT/HCPCS: 36415; 71045; 76856; 80053; 85060; 86850; 86900; 86901; 93005

== ENCOUNTER 2025-09-13 12:35 | Emergency (ER) | payer OTHER ==
[2025-09-13 13:32] LABS: #Basophils 0.06 10x3/uL (0.0-0.2); #Eosinophils 0.03 10x3/uL (0.0-0.7); #Monocytes 0.93 10x3/uL (0.11-0.59); #Neutrophils 13.07 10x3/uL (1.40-6.50); %Basophils 0.4 % (0.0-1.0); %Eosinophils 0.2 % (0.0-10.0); %Lymphocytes 11.8 % (21.0-51.0); %Monocytes 5.8 % (0.0-10.0); %Neutrophils 81.5 % (42.0-75.0); Hematocrit 42.8 % (36.0-47.0); Hemoglobin 13.3 g/dL (12.0-16.0); Mean Corpuscular Hemoglobin 25.5 pg (27.0-31.0); Mean Corpuscular Volume 82.1 fL (78.0-98.0); Platelet Count 292 10x3/uL (130-400); Red Blood Cell (RBC) Count 5.21 mill/uL (4.20-5.40); White Blood Cell (WBC) Count 16.04 10x3/uL (4.8-10.8)
[2025-09-13] MEDS ORDERED: Dexamethasone 10 MG/ML VIAL ONE (13:33)
[2025-09-13 13:53] LABS: ALT (SGPT) 52 U/L (Less than 34); AST (SGOT) 51 U/L (11-34); Albumin 4.6 g/dL (3.1-4.5); Alkaline Phosphatase 76 U/L (40-110); Anion Gap 14 mmol/L (10-20); BUN (Urea Nitrogen) 14 mg/dL (7.0-18.7); Bilirubin, Total 0.9 mg/dL (0.3-1.2); Calc. Creatinine Clearance 0 mL/min (70-130); Calcium 9.6 mg/dL (7.8-10.44); Carbon Dioxide 27 mmol/L (22-29); Chloride 103 mmol/L (98-107); Globulin 3.9 g/dL (2.4-3.5); Glucose 83 mg/dL (70-105); Potassium 3.1 mmol/L (3.5-5.1); Sodium 141 mmol/L (136-145)
== END 2025-09-13 15:19 | disposition home or self-care (01) ==
LOC: ERS 12:35
DX: J45.901 Unspecified asthma with (acute) exacerbation (principal); J06.9 Acute upper respiratory infection, unspecified; Z79.51 Long term (current) use of inhaled steroids
CPT/HCPCS: 71045; 80053; 85025; 85379; 93005; 94760; J1100